=== PATIENT | female | born 1930 ===

== ENCOUNTER 2020-10-19 12:44 | Outpatient (RCR) | payer BC ==
[~2020-10-19 12:44] MED LIST: ASPIRIN81 MG ORAL; CLOPIDOGREL PO; CRESTOR PO; METOPROLOL SUCC PO; benazepril PO
== END 2020-11-05 | disposition home or self-care (01) ==
LOC: WCC 12:44
DX: L97.812 Non-pressure chronic ulcer of other part of right lower leg with fat layer exposed (principal); L59.8 Other specified disorders of the skin and subcutaneous tissue related to radiation; I51.9 Heart disease, unspecified; Z95.0 Presence of cardiac pacemaker; Z85.828 Personal history of other malignant neoplasm of skin
CPT/HCPCS: 99204